=== PATIENT | male | born 1960 | race Caucasian/White ===

== ENCOUNTER 2020-04-01 15:20 | Emergency (ER) | payer BC, SELFPAY ==
[2020-04-01 15:32] VITALS: BP 137/80; PULSE 79; RESP 16; TEMP 36.3; O2SAT 99
--- NOTE | 2020-04-01 15:33 | ED.ABDPAIN ---
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 Patient states he has not seen his doctor in a couple years, had previously noncontributory colonoscopy. He comes today for work note as he has had 1/2-week history since Monday of diarrhea x4 to 6/day. No fever, cough, fatigue/myalgias, loss of taste/smell, blood, abdominal pain now, sick contacts, travel history, anorexia/nausea / vomiting. Symptoms are mild and absent this afternoon, after taking Pepto-Bismol. He had a similar 'flu bug' in the past, which was somewhat shorter duration Related Data Home Medications Medication Instructions Recorded Confirmed naltrexone 04/01/20 Allergies Allergy/AdvReac Type Severity Reaction Status Date / Time Penicillins Allergy Unknown Verified 04/01/20 15:36 Review of Systems Review of Systems: Narrative: General/Constitutional: No weight loss,fever Eyes: N0: Redness,discharge Ears/Nose/Throat: No: Epistaxis,ear discharge Respiratory: Denies: Hemoptysis Gastrointestinal: No Vomiting, Bleeding-rectal Skin: No Lumps, eruption Neurologic: No Focal Weakness,Sz Hematologic: Denies: Petechiae/Purpura Psychiatric: No: Suicida ideationl All Other Systems: Reviewed and Negative PMFSH Comments At time of signature, agree with nursing past medical, surgical, social and family history. There is no relevant family history pertinent to the presenting complaint Exam Narrative: Exam Narrative: General Appearance: Well appearing,, Conjunctiva clear Ears: External ear normal Nose: Normal nose Mouth/Throat: Normal appearing, supple Respiratory: Airway patent, No respiratory distress Abdomen: Soft, Non-tender, No massess, Musculoskeletal: Full ROM Skin: Warm, Dry Neurological: A&O x3, Normal affect Course Vital Signs Vital signs: Vital Signs Temperature 97.3 F L 04/01/20 15:32 Pulse Rate 79 04/01/20 15:32 Respiratory Rate 16 04/01/20 15:32 Blood Pressure 137/80 04/01/20 15:32 Pulse Oximetry 99 04/01/20 15:32 Temperature 97.3 F L 04/01/20 15:32 Pulse Rate 79 04/01/20 15:32 Respiratory Rate 16 04/01/20 15:32 Blood Pressure 137/80 04/01/20 15:32 Pulse Oximetry 99 04/01/20 15:32 Discharge Plan Discharge Clinical Impression: Diarrhea Qualifiers: Diarrhea type: unspecified type Qualified Code(s): R19.7 - Diarrhea, unspecified Patient Disposition: Home, Self-Care Condition: Stable Instructions: Acute Diarrhea (ED) Additional Instructions: Some guidelines for return to work include: -At least 10 days have passed since symptoms first appeared and -At least 24 hours have passed since last fever without the use of fever-reducing medications and -Symptoms have improved Prescriptions: No Action naltrexone RF: 0 Interventions: Discharge Disposition Last Done: 04/01/20 16:13 Follow-up/Referrals: Umberto,MD Christopher [Primary Care Provider] - Stand Alone Forms: Work/School Release IP Discharge Date/Time: 04/01/20 16:18
== END 2020-04-01 16:18 | disposition home or self-care (01) ==
PROVIDERS: Emergency Provider Emergency Medicine; PCP Internal Medicine
DX: R19.7 Diarrhea, unspecified (principal)
CPT/HCPCS: 99201; 99211; G0463

== ENCOUNTER → 2020-10-09 08:19 | Outpatient (CLI) | payer BC, SELFPAY ==
--- NOTE | ~2020-10-09 | MR_ITS ---
EXAMINATION: MR cervical spine wo con EXAM DATE: 10/09/2020 09:18 INDICATION: Cervical radiculopathy, neck pain, left shoulder pain. TECHNIQUE: Multi-sequential, multiplanar MR images of the cervical spine were obtained without contra st. Axial T2, axial T2 MERGE sequence. Sagittal T1, T2, T2 fat saturation images also obtained. Com parison is made to prior examination from 01/06/2017. FINDINGS: There is moderate disc disease C5-C7, mild at C4-5. There is 2 mm retrolisthesis C5 on C6 and 2 mm anterolisthesis C7 on T1. The spinal cord signal intensity and intrinsic morphology is taty l. Cervicomedullary junction is normal in appearance. There are no suspicious marrow signal abnormali ties. Paraspinal soft tissue is unremarkable. Level by level evaluation: C2-C3: Disc does not extend beyond the endplate margin. Uncovertebral joint arthropathy: Mild bilateral. Facet joint arthropathy: Moderate left, mild to moderate right. Neural foraminal stenosis: Mild left. Central canal stenosis: No stenosis. C3-C4: Disc does not extend beyond the endplate margin. Uncovertebral joint arthropathy: Mild to moderate bilateral. Facet joint arthropathy: Severe left, moderate right. Neural foraminal stenosis: Moderate left, mild to moderate right. Central canal stenosis: No stenosis. C4-C5: Disc does not extend beyond the endplate margin. Uncovertebral joint arthropathy: Mild to moderate bilateral. Facet joint arthropathy: Moderate bilateral. Neural foraminal stenosis: Mild bilateral. Central canal stenosis: No stenosis. C5-C6: There is a mild diffuse disc bulge. Uncovertebral joint arthropathy: Severe left, moderate to severe right. Facet joint arthropathy: Moderate to severe left, moderate right. Neural foraminal stenosis: Severe left, moderate right. Central canal stenosis: Mild to moderate. C6-C7: There is a mild to moderate diffuse disc bulge. Uncovertebral joint arthropathy: Moderate to severe bilateral. Facet joint arthropathy: Moderate bilateral. Neural foraminal stenosis: Moderate to severe bilateral. Central canal stenosis: Mild. C7-T1: Disc does not extend beyond the endplate margin. Uncovertebral joint arthropathy: Mild to moderate bilateral. Facet joint arthropathy: Severe left. Neural foraminal stenosis: Moderate left, mild to moderate right. Central canal stenosis: No stenosis. Compared to 2017, difficult to appreciate any significant interval change. IMPRESSION: 1. Advanced lower cervical spondylosis. Reviewed, dictated and finalized at location B. APPLICATIONS ANALYST
== END ==
PROVIDERS: Visit Provider Nurse Practitioner Family
DX: M47.812 Spondylosis without myelopathy or radiculopathy, cervical region (principal)
CPT/HCPCS: 72141

== ENCOUNTER 2022-08-09 09:11 | Emergency (ER) | payer BC, SELFPAY ==
[2022-08-09 09:23] VITALS: BP 118/78; PULSE 87; RESP 16; TEMP 36.1; O2SAT 99
--- NOTE | 2022-08-09 09:25 | ED.URI ---
HPI - URI/Sore Throat General Chief Complaint: Upper Respiratory Infection Stated Complaint: positive for covid Time Seen by Provider: 08/09/22 09:25 Source: patient Mode of arrival: ambulatory Limitations: no limitations History of Present Illness HPI Narrative: Mr. Montiel is a 62-year-old male patient presenting to clinic today with complaints of slight sore throat, nasal congestion, cough, and body aches. He reports that he tested positive for COVID at home today. Symptoms began Monday night. MD elicited complaint: sore throat and nasal congestion Related Data Allergies Allergy/AdvReac Type Severity Reaction Status Date / Time Penicillins Allergy Unknown Verified 08/09/22 09:23 Review of Systems Review of Systems: Pertinent positives per HPI. Patient denies any fever, rash, headache, visual changes, dizziness, shortness of breath, chest pain, palpitations, nausea, vomiting, diarrhea, constipation, abdominal pain, or any urinary issues. PMFSH Comments At the time of my signature, I reviewed and agree with the nursing past medical, surgical, social, and family history. There is no relevant family history pertinent to the patient complaint. Exam Narrative: General: Well-developed, well nourished, in no apparent distress Head: Normocephalic, atraumatic Eyes: Pupils equally round and reactive to light bilaterally, EOM intact, sclera and conjunctive clear, no discharge, lids normal Ears: TMs intact and clear, ear canals clear, no drainage, grossly hearing normal. Nose: Nares patent, clear nasal discharge, no inflammation, no sinus tenderness. Mouth: Oral pharynx without lesions or masses, good dentition, MMM. Oropharynx red Neck: Supple, trachea midline, no enlargement of anterior or posterior cervical nodes, no thyroid masses or goiter palpable. Cardio: Regular rate and rhythm, s1 and s2 normal, no murmur appreciated. Resp: Clear to auscultation bilaterally, no rhonchi, rales, wheezing or rubs Course Course Emergency Course: Portions of this record may have been created with voice recognition software. Level of Care: Express Care Visit Vital Signs Vital signs: Vital Signs Temperature 36.1 C L 08/09/22 09:23 Pulse Rate 87 08/09/22 09:23 Respiratory Rate 16 08/09/22 09:23 Blood Pressure 118/78 08/09/22 09:23 Pulse Oximetry 99 08/09/22 09:23 Temperature 36.1 C L 08/09/22 09:23 Pulse Rate 87 08/09/22 09:23 Respiratory Rate 16 08/09/22 09:23 Blood Pressure 118/78 08/09/22 09:23 Pulse Oximetry 99 08/09/22 09:23 Vital signs reviewed MDM - URI/Sore Throat MDM Narrative Medical decision making narrative: At the time of visit patient is resting comfortably on the exam table. He tested positive for COVID at home. Lung sounds are clear in the office today. COVID test in the office is positive. Will send in prescription for mulinpirviar. Supportive measures were discussed with the patient and he voiced understanding of discharge instructions Differential Diagnosis Differential diagnosis: Likely upper respiratory infection, otitis media, sinusitis, viral infection, bronchitis, influenza, pharyngitis and other (COVID) Discharge Plan Discharge Clinical Impression: COVID-19 Patient Disposition: Home, Self-Care Condition: Stable Instructions: Antibiotic Form, COVID-19 (Coronavirus Disease 2019) (ED), How to Recover from COVID-19 at Home (ED) Additional Instructions: Take prescription medications only as prescribed-mulnupiviviar and albuterol inhaler Increase fluids and stay well hydrated Tylenol/motrin for pain/fever Flonase and OTC antihistamines as directed Vicks vapor rub to open sinuses Sinus rinses for congestion Cepacol spray, cough drops, throat lozenges, warm tea with honey/lemon, gargle salt water to soothe throat BRAT diet for diarrhea Clear liquids x 24 hours then advance as tolerated for nausea/vomiting Go to the ED if you develop a wors
== END 2022-08-09 09:41 | disposition home or self-care (01) ==
PROVIDERS: Emergency Provider Nurse Practitioner Family
DX: U07.1 COVID-19 (principal); J44.9 Chronic obstructive pulmonary disease, unspecified; M19.90 Unspecified osteoarthritis, unspecified site; M48.061 Spinal stenosis, lumbar region without neurogenic claudication
CPT/HCPCS: 87426; 99213; C9803; G0463

== ENCOUNTER 2023-04-19 12:12 | Emergency (ER) | payer BC, SELFPAY ==
--- NOTE | 2023-04-19 12:15 | ED.EAR ---
HPI - Ear Problem General Chief complaint: Ear Stated complaint: EARACHE/? FB Time Seen by Provider: 04/19/23 12:29 Source: patient and RN notes reviewed Mode of arrival: ambulatory Limitations: no limitations History of Present Illness HPI Narrative: 63-year-old male with concern for decreased hearing, possible foreign body in his left ear. Reports he had a scope that he could see in his ear and noticed a hair and the year. Reports he was trying to clean it out when he felt a little pain. He reports he felt pressure and decreased hearing. He denies current pain. Denies drainage from the ear. He reports recent sinus inflammation and drainage Complaint: decreased hearing Related Data Allergies Allergy/AdvReac Type Severity Reaction Status Date / Time Penicillins Allergy Unknown Verified 04/19/23 12:28 Review of Systems Review of Systems: CONSTITUTIONAL: Denies malaise, chills, sweats, or fever. EYES: Denies visual changes, redness, or discharge. ENT: Reports rhinorrhea, congestion. Denies sinus pain, and sore throat. Reports slightly decreased hearing in left ear with fullness CARDIOVASCULAR: Denies chest pain, palpitations, or edema. RESPIRATORY: Denies cough. Denies dyspnea. GASTROINTESTINAL: Denies abdominal pain, nausea, vomiting, diarrhea SKIN: Denies rash or itching. MUSCULOSKELETAL: Denies myalgia. NEUROLOGIC: Denies headache. All systems reviewed & are unremarkable except as noted in HPI and below PMFSH Comments At time of signature, agree with nursing past medical, surgical, social and family history. There is no relevant family history pertinent to the presenting complaint Exam Narrative: GENERAL: Well-appearing, well-nourished, and in no acute distress. HEAD: Normocephalic EYES: PERRLA, conjunctivae clear ENT: Nares clear, turbinates edematous, clear discharge. Mucous membranes moist. Right TM pearly toussaint with sharp light reflex, left TM slightly dull with fluid level noted; no tragal tenderness, hair noted in both ears, no foreign body. Oropharynx not erythematous without lesions. Tonsils not enlarged and without exudate, no drooling, no hoarseness, no trismus, uvula midline. NECK: Supple. No lymphadenopathy CHEST: Clear to auscultation, breath sounds equal. No wheezing, rhonchi, rales, or stridor. No respiratory distress, speaks in full sentences. HEART: Regular rate and rhythm. No murmur heard. SKIN: Warm, dry, no rash. NEURO: Alert and oriented x3. PSYCH: Normal mood and affect Course Course Emergency Course: Patient is aware of diagnosis, understands and agrees to treatment plan. Anticipatory guidance given. Patient agrees to follow-up as directed and is aware of reasons to seek care at the emergency department. Portions of this record may have been created with voice recognition software Level of Care: Express Care Visit Vital Signs Vital signs: Reviewed. Medical Decision Making MDM Narrative Medical decision making narrative: Differential diagnosis considered: [place] virus, strep pharyngitis, allergic rhinitis, upper respiratory tract infection, sinusitis, rhinosinusitis, nasopharyngitis. viral pharyngitis, otitis media, otitis externa, otitis effusion, cerumen impaction, foreign body. Exam findings show no acute concerns or changes; patient is non-toxic appearing and is in no distress. Patient is appropriate for outpatient treatment and follow-up. Critical Care Time Critical Care Time Critical Care Time: No Discharge Plan Discharge Clinical Impression: Fluid level behind tympanic membrane of left ear Patient Disposition: Home, Self-Care Condition: Stable Instructions: General Patient Instructions Additional Instructions: Recommend antihistamine such as Benadryl at night time and Zyrtec or Meri during the day until symptoms improve Flonase nasal spray, 2 sprays in each nostril once daily until symptoms improve Pseudoephedrine as directed Also, recommend sympt
[2023-04-19 12:21] VITALS: BP 134/83; PULSE 77; RESP 16; TEMP 36.6; O2SAT 98
== END 2023-04-19 12:40 | disposition home or self-care (01) ==
PROVIDERS: Emergency Provider Nurse Practitioner
DX: H73.892 Other specified disorders of tympanic membrane, left ear (principal); J44.9 Chronic obstructive pulmonary disease, unspecified; M19.90 Unspecified osteoarthritis, unspecified site; M48.061 Spinal stenosis, lumbar region without neurogenic claudication; Z86.16 Personal history of COVID-19
CPT/HCPCS: 99213; G0463

== ENCOUNTER 2023-07-12 13:39 | Emergency (ER) | payer BC, SELFPAY ==
[2023-07-12 13:45] VITALS: BP 126/77; PULSE 88; RESP 16; TEMP 36.4; O2SAT 99
--- NOTE | 2023-07-12 14:12 | ED.URI ---
HPI - URI/Sore Throat General Chief Complaint: Upper Respiratory Infection Stated Complaint: + COVID Time Seen by Provider: 07/12/23 14:00 Source: patient and RN notes reviewed Mode of arrival: ambulatory Limitations: no limitations History of Present Illness HPI Narrative: Patient presents today complaining of a 4 day history of cough, body aches, lightheadedness. He tested positive for COVID-19 at home today. He denies fever, chest pain, shortness of breath. He has been taking ibuprofen with some relief. He has had 2 vaccines for COVID-19, but no current boosters. Related Data Home Medications Medication Instructions Recorded Confirmed No Home Medications 07/12/23 07/12/23 Allergies Allergy/AdvReac Type Severity Reaction Status Date / Time Penicillins Allergy Unknown Verified 07/12/23 13:52 Review of Systems Review of Systems: CONSTITUTIONAL: Denies fever, chills, or sweats.+ body aches EYES: Denies visual changes, redness, or discharge. ENT: Denies rhinorrhea, congestion, sore throat, or otalgia. CARDIOVASCULAR: Denies chest pain, palpitations, or edema. RESPIRATORY: Denies dyspnea.+ cough GASTROINTESTINAL: Denies abdominal pain, nausea, vomiting, or diarrhea. GENITOURINARY: Denies dysuria or hematuria. SKIN: Denies rash, itching, or wounds. MUSCULOSKELETAL: Denies back pain, joint pain, or myalgia. NEUROLOGIC: Denies headache, numbness, tingling, or weakness.+ lightheadedness PSYCH: Denies depression or anxiety. [facility] Social History Social History (Updated 07/12/23 @ 14:21 by Jessica Shanks, [facility]) Smoking packs per day: 1 Smoking cigarettes per day: 20.0 Comments At time of signature, I have reviewed and agree with nursing past medical, surgical, social and family history unless otherwise noted. Please see nursing chart for further information. There is no relevant family history pertinent to the presenting complaint Exam Narrative: GENERAL: Well-appearing, well-nourished, and in no acute distress. HEAD: Normocephalic, atraumatic. EYES: EOMI. No redness or drainage. Conjunctivae normal. ENT: Mucous membranes pink and moist. Nares clear. No rhinorrhea. TMs normal bilaterally. Throat normal. Uvula midline. NECK: Normal AROM. Supple. No lymphadenopathy. CHEST: No respiratory distress. Clear to auscultation. HEART: Regular rate and rhythm. No murmur appreciated. Normal peripheral pulses. EXTREMITIES: Normal range of motion. No edema. SKIN: Warm, dry, no rash. Capillary refill normal. Normal skin turgor. NEURO: No focal deficits. Alert and oriented x3. Gait steady. PSYCH: Normal affect. No signs of depression or anxiety. Course Course Level of Care: Express Care Visit Vital Signs Vital signs: Vital Signs Temperature 97.6 F 07/12/23 13:45 Pulse Rate 88 07/12/23 13:45 Respiratory Rate 16 07/12/23 13:45 Blood Pressure 126/77 07/12/23 13:45 Pulse Oximetry 99 07/12/23 13:45 Temperature 97.6 F 07/12/23 13:45 Pulse Rate 88 07/12/23 13:45 Respiratory Rate 16 07/12/23 13:45 Blood Pressure 126/77 07/12/23 13:45 Pulse Oximetry 99 07/12/23 13:45 Oxygen Delivery Room Air 07/12/23 13:47 Reviewed MDM - URI/Sore Throat MDM Narrative Medical decision making narrative: Patient tested positive for COVID-19 at home. Exam is negative for any signs of decompensation or pneumonia. He has no serous comorbidities that would indicate need for an antiviral at this time. Patient agrees with plan for [id number] medications for his symptoms. Anticipatory guidance given. Differential Diagnosis Differential diagnosis: Likely other (COVID-19, pneumonia) Critical Care Time Critical Care Time Critical Care Time: No Discharge Plan Discharge Clinical Impression: COVID-19 Patient Disposition: Home, Self-Care Condition: Stable Instructions: COVID-19 (Coronavirus Disease 2019) (ED) Additional Instructions: Your positive f
== END 2023-07-12 14:18 | disposition home or self-care (01) ==
PROVIDERS: Emergency Provider Nurse Practitioner
DX: U07.1 COVID-19 (principal); F17.210 Nicotine dependence, cigarettes, uncomplicated
CPT/HCPCS: 99211; G0463

== ENCOUNTER 2024-09-10 08:53 | Outpatient (CLI) | payer BC, SELFPAY ==
--- NOTE | ~2024-09-10 | XR_ITS ---
Cervical Spine: AP, lateral, open-mouth views Clinical History: Pain Findings: There is straightening of the normal cervical lordosis. No fracture seen. There is minimal grade 1 retrolisthesis of C5 over C6. There is advanced degenerative disc narrowing at C5-C6 and C6-C 7. There is mild facet arthropathy throughout the cervical spine. Pre-vertebral soft tissues are unre markable. Impression: Moderate degenerative spondylosis, as above. Grade 1 retrolisthesis of C5 over C6. Reviewed, dictated and finalized at location M. FFINER Impression: Moderate degenerative spondylosis, as above. Grade 1 retrolisthesis of C5 over C6.
--- NOTE | ~2024-09-10 | XR_ITS ---
Left Shoulder Technique: AP and axillary views were obtained. Clinical History: Pain Findings: No fracture or dislocation is seen. Osseous alignment is anatomic. The glenohumeral and acr omioclavicular joint spaces are preserved. Soft tissues are unremarkable. Impression: Unremarkable left shoulder radiographs. Reviewed, dictated and finalized at [facility]. Y FARMWORKER Impression: Unremarkable left shoulder radiographs.
== END 2024-09-10 08:54 | disposition home or self-care (01) ==
LOC: MICIMG 08:55
PROVIDERS: PCP Nurse Practitioner Family; Visit Provider Nurse Practitioner Family
DX: M47.812 Spondylosis without myelopathy or radiculopathy, cervical region (principal); M43.12 Spondylolisthesis, cervical region; M25.512 Pain in left shoulder
CPT/HCPCS: 72040; 73030

== ENCOUNTER 2024-11-15 08:18 | Outpatient (CLI) | payer BC, SELFPAY ==
--- OUTSIDE RECORDS SUMMARY | 2024-11-15 08:26 | XMS_ITS | Encounter Summary ---
[facility] Organization [facility] Address [address] [place] [address] Care Team Providers Care It Telecom Technician Name Role Phone Unavailable Primary Care Provider Unavailabl e Encounter Details Date Type Department Care Team (Latest Contact Info) Description 08/16/1999 Outpatient Historical [facility] [place] 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
--- OUTSIDE RECORDS SUMMARY | 2024-11-15 08:26 | XMS_ITS | Encounter Summary ---
Author Organization [facility] Address [address] [place] [address] Care Team Providers Care Motor Equipment Captain Name Role Phone Unavailable Primary Care Provider Unavailabl e Encounter Details Date Type Department Care Team (Latest Contact Info) Description 09/17/1999 Outpatient Historical [facility] [place] 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
--- OUTSIDE RECORDS SUMMARY | 2024-11-15 08:26 | XMS_ITS | Clinical Summary ---
Author Organization 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
[2024-11-15 14:03] LABS: Basophils Absolute Auto 0.1 K/mm3 (0.0-0.1); Basophils Percent Auto 0.6 % (0.2-1.2); Eosinophils Absolute Auto 0.2 K/mm3 (0-0.3); Eosinophils Percent Auto 2.3 % (0-4.4); Hematocrit 45.5 % (42.0-52.0); Hemoglobin 14.7 g/dL (14.0-18.0); Immature Granulocyte Absolute 0.03 K/mm3 (0.00-0.031); Immature Granulocyte Percent A 0.3 % (0-0.5); Lymphocytes Absolute Auto 2.43 K/mm3 (0.9-3.2); Lymphocytes Percent Auto 26.1 % (18.3-44.2); Mean Corpuscular HGB Conc 32.3 g/dl (32-36); Mean Corpuscular Hemoglobin 31.3 pg (26-34); Mean Platelet Volume 9.4 fl (7.4-10.4); Monocytes Absolute Auto 0.9 K/mm3 (0.1-0.6); Monocytes Percent Auto 9.6 % (2.6-8.5); Neutrophils Absolute Auto 5.7 K/mm3 (1.3-6.7); Neutrophils Percent Auto 61.1 % (45.5-73.1); Platelet Count Result 268 k/mm3 (150-375); Red Blood Count 4.69 M/mm3 (4.6-6.20); White Blood Count 9.3 K/mm3 (4.5-10.0)
[2024-11-15 14:06] LABS: Add Urine Microscopic? NO; Appearance Urine Clear (Clear); Bilirubin Urine Negative (Negative); Blood Urine Negative (Negative); Color Urine Yellow (Yellow); Glucose Urine UA Negative (Negative); Ketones Urine Negative (Negative); Leukocyte Esterase Ur Negative LEU/UL (Negative); Nitrate Urine Negative (Negative); Protein Urine Negative (Negative); Urobilinogen Urine 0.2 mg/dL (<2.0); pH Urine 5.5 (5.0-9.0)
[2024-11-15 14:46] LABS: LDL Cholesterol Direct 88 mg/dL
[2024-11-15 15:05] LABS: Prostate Specific Antigen 4.7 ng/mL (< OR = 4.0); Thyroid Stimulating Hormone 0.963 uIU/mL (0.465-4.680)
[2024-11-15 15:34] LABS: Free T3 2.85 pg/mL (2.45-5.93)
[2024-11-15 15:46] LABS: Alanine Aminotransferase 18 U/L (6-50); Albumin Level 4.6 g/dL (3.5-5.1); Alkaline Phosphatase 91 U/L (38-126); Anion Gap 8 mmol/L (4-12); Aspartate Amino Transferase 67 U/L (17-59); Bilirubin,Total 0.7 mg/dL (0.2-1.3); Blood Urea Nitrogen 14 mg/dL (9-20); Calcium 9.1 mg/dL (8.4-10.2); Carbon Dioxide 28 mmol/L (22-30); Chloride 104 mmol/L (98-107); Cholesterol 173 mg/dL (0-200); Estimated Glomerular Filt Rate > 60; Glucose 83 mg/dL (65-110); HDL Direct 60 mg/dL; Potassium 4.1 mmol/L (3.4-5.0); Sodium 140 mmol/L (137-145); Triglycerides 71 mg/dL (<150)
[2024-11-20 14:23] LABS: Apolipoprotein B 85 mg/dL
== END 2024-11-15 08:19 | disposition home or self-care (01) ==
PROVIDERS: PCP Internal Medicine; Visit Provider Internal Medicine
DX: Z13.29 Encounter for screening for other suspected endocrine disorder (principal); Z13.0 Encounter for screening for diseases of the blood and blood-forming organs and certain disorders involving the immune mechanism; Z13.228 Encounter for screening for other metabolic disorders; Z13.220 Encounter for screening for lipoid disorders; K14.8 Other diseases of tongue; R63.4 Abnormal weight loss; R39.9 Unspecified symptoms and signs involving the genitourinary system; Z72.0 Tobacco use; G47.62 Sleep related leg cramps
CPT/HCPCS: 36415; 80053; 80061; 81003; 82172; 82728; 84153; 84443; 84481; 85025; G0103

== ENCOUNTER → 2024-11-15 08:19 | Outpatient (REF) | payer BC, SELFPAY | LOC: ANHGOSHLAB 08:19 | PROVIDERS: PCP Internal Medicine; Visit Provider Otolaryngology Otolaryngology/Facial Plastic Surgery | DX: D10.1 Benign neoplasm of tongue (principal); K14.8 Other diseases of tongue | CPT/HCPCS: 36415; 80053; 80061; 81003; 82172; 82728; 84153; 84443; 84481; 85025; 88304; G0103 ==

== ENCOUNTER 2024-11-19 07:40 | Outpatient (CLI) | payer BC, SELFPAY ==
--- NOTE | ~2024-11-19 | US_ITS ---
EXAMINATION: US aorta DATE: 11/19/2024 8:15 CDT INDICATION: Screening abdominal aortic aneurysm. Tobacco use. TECHNIQUE: Grayscale, color Doppler, and pulsed Doppler images of the aorta and common iliac arteries were obtained. COMPARISON: None. FINDINGS: The proximal aorta measures 2.5 cm greatest sagittal dimension. The mid aorta measures 2.2 cm greates t sagittal dimension. The distal aorta measures 2.0 sagittal dimension. The right common internal prabhjot ac artery measures 0.7 centimeters. The left common iliac artery measures 1.0 cm. IMPRESSION: 1. Mild atherosclerosis and ectasia of the abdominal aorta without aneurysm. Reviewed, dictated and finalized at location A.
--- NOTE | ~2024-11-19 | CT_ITS ---
CT Scan of the Chest without Contrast: Clinical Indication: Lung cancer screening, nicotine dependence Technique: Contiguous sections were acquired throughout the chest without intravenous contrast. Dose reduction technique was used on this scan by utilizing automated exposure control and iterative recon struction technique. The dose-length product (DLP) was 53.58 mGy-cm. Findings: There is no evidence of any significant mediastinal, hilar or axillary lymphadenopathy. Small calcifi ed hilar/mediastinal lymph nodes are present. There is no evidence of pleural or pericardial effusion. 4 mm right lower lobe nodule present near the fissure (axial image 62). Scattered calcified granuloma s are present bilaterally. Images through the upper abdomen reveal no abnormalities. There are mild compression deformities the mid thoracic spine with chronic degenerative disc changes and DISH. Impression: Lung RADS 2: Benign appearance. 12 month follow-up screening CT advised. Reviewed, dictated and finalized at [facility]. Impression: Lung RADS 2: Benign appearance. 12 month follow-up screening CT advised.
== END 2024-11-19 07:41 | disposition home or self-care (01) ==
LOC: MICIMG 07:40
PROVIDERS: PCP Internal Medicine; Visit Provider Internal Medicine
DX: Z12.2 Encounter for screening for malignant neoplasm of respiratory organs (principal); Z87.891 Personal history of nicotine dependence; Z13.6 Encounter for screening for cardiovascular disorders; I70.0 Atherosclerosis of aorta; I77.811 Abdominal aortic ectasia
CPT/HCPCS: 71271; 76775

== ENCOUNTER 2024-12-05 07:39 | Outpatient (CLI) | payer BC, SELFPAY ==
--- NOTE | ~2024-12-05 | MR_ITS ---
MRI of the cervical spine Clinical History: Radiculopathy Technique: Axial T2-weighted and gradient images, and sagittal T1-weighted, T2-weighted, and STIR marie ges were acquired. COMPARISON: 10/09/2020 Findings: No acute fracture or subluxation seen. Osseous alignment unchanged from prior exam. There a re reactive marrow signal changes about the C5-C6 and C6-C7 disc spaces due to underlying degenerativ e disc disease. At C2-C3, there is no disc bulge or herniation. There is mild bilateral facet arthropathy, left worse than right. There is left neural foraminal narrowing. No canal stenosis, cord compression or definit e right neural foraminal narrowing. At C3-C4, there is minimal disc bulge with bilateral facet arthropathy, left worse than right. There is bilateral neural foraminal narrowing, left worse than right. No canal stenosis or cord compression . At C4-C5, there is mild disc osteophyte complex and mild bilateral facet arthropathy, right worse krissy n left. Probable minimal right neural foraminal narrowing. No susan canal stenosis, cord compression, or left neural foraminal narrowing. At C5-C6, there is moderate degenerative disc narrowing. There is disc osteophyte complex with mild c anal stenosis and minimal flattening the ventral cord. There is bilateral neural foraminal narrowing. At C6-C7, there is severe degenerative disc narrowing. There is minimal disc bulge. No canal stenosis or cord compression. There is significant bilateral neural foraminal narrowing. No abnormal signal seen in the spinal cord. Paravertebral soft tissues are unremarkable. Impression: Moderate to advanced degenerative spondylosis, as detailed above. Reviewed, dictated and finalized at location . Impression: Moderate to advanced degenerative spondylosis, as detailed above.
== END 2024-12-05 07:40 | disposition home or self-care (01) ==
LOC: MICIMG 07:39
PROVIDERS: PCP Internal Medicine; Visit Provider Nurse Practitioner Family
DX: M47.812 Spondylosis without myelopathy or radiculopathy, cervical region (principal)
CPT/HCPCS: 72141

== ENCOUNTER 2025-08-06 07:26 | Outpatient (CLI) | payer BC, SELFPAY ==
--- NOTE | ~2025-08-06 | XR_ITS ---
XR lumbar spine 2-3V 08/06/2025 08:20 Indication: Low back pain Procedure: 3 views lumbar spine Comparison: No prior studies for comparison. Findings: There is dextroscoliosis of the thoracolumbar spine centered at L1. There is disc narrowing at all lumbar levels. There is advanced multilevel facet hypertrophy from L3-4 through L5-S1. There is grade 1 degenerative spondylolisthesis at L4-5. No acute fracture or traumatic malalignment. Pedicles intact. Impression: 1: Severe lumbar spondylosis with dextroscoliosis. Reviewed, dictated and finalized at location O. [employer] Impression: 1: Severe lumbar spondylosis with dextroscoliosis.
--- NOTE | ~2025-08-06 | MR_ITS ---
EXAMINATION: MR lumbar spine wo con DATE: 08/06/2025 08:21 INDICATION: Low back pain. TECHNIQUE: Magnetic resonance imaging (MRI) of the lumbar spine was performed without intravenous contrast. COMPARISON: Lumbar spine MRI 04/22/16 FINDINGS: There is 10 degrees dextroscoliosis of thoracolumbar spine. There is 5 mm anterolisthesis of L4 on L5. There is mild chronic anterior wedging of T12 vertebral body. There is mildly decreased disc height at L1-L2, L3-L4, L4-L5, and L5-S1. The distal spinal cord signal intensity is normal. The conus medullaris is at T12-L1. There is a 2.5 cm cyst in left kidney. The following disc levels are specifically discussed: L1-L2: The disc is bulging. There is mild right and moderate left facet joint osteoarthritis. There is mild bilateral neural foraminal stenosis. There is mild central canal stenosis. L2-L3: The disc is bulging. There is moderate bilateral facet joint osteoarthritis. There is mild bilateral neural foraminal stenosis. There is mild central canal stenosis. L3-L4: The disc is bulging. There is severe bilateral facet joint osteoarthritis. There is mild bilateral neural foraminal stenosis. There is mild central canal stenosis. L4-L5: The disc is bulging. There is severe bilateral facet joint osteoarthritis. There is moderate right and mild left neural foraminal stenosis. There is mild central canal stenosis. L5-S1: The disc is bulging. There is severe bilateral facet joint osteoarthritis. There is mild bilateral neural foraminal stenosis. There is mild central canal stenosis. IMPRESSION: 1. Moderate lumbar spondylosis, mildly worsened from 04/22/2016. 2. Thoracolumbar dextroscoliosis. Reviewed, dictated and finalized at location E. LY SPECIALIST
== END 2025-08-06 07:27 | disposition home or self-care (01) ==
PROVIDERS: PCP Internal Medicine; Visit Provider Nurse Practitioner Family
DX: M47.816 Spondylosis without myelopathy or radiculopathy, lumbar region (principal); M41.86 Other forms of scoliosis, lumbar region; M41.85 Other forms of scoliosis, thoracolumbar region
CPT/HCPCS: 72100; 72148